=== PATIENT | male | born 1950 | race Caucasian/White ===

== ENCOUNTER 2018-02-07 06:59 | Day surgery (SDC) | payer MEDICARE, OTHER ==
[~2018-02-07] VITALS: Ht 177.8 cm; Wt 86.4 kg
[~2018-02-07 06:59] MED LIST: MIRAPEX 1MG PO; RT ADVAIR 228 DISKUS IH; SEPTRA DS 8001 TAB PO
[2018-02-07] MEDS ORDERED: NEXIUM 40MG40 MG PO (07:12)
[2018-02-07] MEDS ORDERED: AMBIEN 10MG10 MG PO (07:12)
[2018-02-07] MEDS ORDERED: SINGULAIR 110 MG/TAB PO (07:13)
[2018-02-07] MEDS ORDERED: HCTZ 25MG TAB25 MG PO (07:13)
[2018-02-07] MEDS ORDERED: ASPIRIN 32325 MG/TAB PO (07:21)
[2018-02-07] MEDS ORDERED: ALEVE 220MG220 MG PO (07:21)
[2018-02-07] MEDS ORDERED: MULTI VITAMINS1 TAB PO (07:22)
[2018-02-07] MEDS ORDERED: FLONASEALLERGY NS (07:23)
[2018-02-07 07:47] VITALS: BP 127/78; PULSE 54; TEMP 97.8
[2018-02-07 09:05] VITALS: BP 127/78; PULSE 51; TEMP 97.6
[2018-02-07 09:20] VITALS: BP 111/70; PULSE 46
[2018-02-07 09:35] VITALS: BP 105/69; PULSE 52
== END 2018-02-07 10:03 | disposition home or self-care (01) ==
LOC: SDCO 06:59
DX: D12.5 Benign neoplasm of sigmoid colon (principal); K63.5 Polyp of colon; K57.30 Diverticulosis of large intestine without perforation or abscess without bleeding; K64.0 First degree hemorrhoids; K21.9 Gastro-esophageal reflux disease without esophagitis; Z87.442 Personal history of urinary calculi; Z86.010 Personal history of colon polyps; Z96.652 Presence of left artificial knee joint; Z79.82 Long term (current) use of aspirin; Z80.0 Family history of malignant neoplasm of digestive organs
CPT/HCPCS: J2250; J3010; J7030

== ENCOUNTER 2019-04-18 10:00 | Outpatient (RCR) | payer MEDICARE, OTHER ==
[~2019-04-18 10:00] MED LIST changes: +ALEVE 220MG220 MG PO; +AMBIEN 10MG10 MG PO; +ASPIRIN 32325 MG/TAB PO; +FLONASEALLERGY NS; +HCTZ 25MG TAB25 MG PO; +MULTI VITAMINS1 TAB PO; +NEXIUM 40MG40 MG PO; +SINGULAIR 110 MG/TAB PO
== END 2019-04-18 15:20 | disposition home or self-care (01) ==
LOC: MKS.ESL.PT 10:00
DX: M25.60 Stiffness of unspecified joint, not elsewhere classified (principal)
CPT/HCPCS: G0283-GP

== ENCOUNTER 2020-01-04 14:56 | Outpatient (RCR) | payer MEDICARE, OTHER ==
[~2020-01-04 14:56] MED LIST changes: +ASPIRIN E.C. 8181 MG PO; +BRILINTA90 MG PO; +IMDUR 30MG30 MG/TAB PO; +LIPITOR 80MG80 MG PO; +UNIPHYL 400MG400 MG PO
== END 2020-01-06 | disposition still patient (30) ==
LOC: COL.CR
DX: Z48.812 Encounter for surgical aftercare following surgery on the circulatory system (principal); Z95.5 Presence of coronary angioplasty implant and graft

== ENCOUNTER 2020-04-07 15:55 | Outpatient (RCR) | payer SELFPAY | END 2020-04-08 | disposition home or self-care (01) | LOC: COL.CR | DX: Z02.9 Encounter for administrative examinations, unspecified (principal) ==

== ENCOUNTER 2020-07-07 13:12 | Outpatient (RCR) | payer SELFPAY | END 2020-07-08 | disposition home or self-care (01) | LOC: COL.CR | DX: Z02.89 Encounter for other administrative examinations (principal) ==

== ENCOUNTER 2020-10-03 17:07 | Outpatient (RCR) | payer SELFPAY | END 2020-10-07 | disposition home or self-care (01) | LOC: COL.CR | DX: Z02.89 Encounter for other administrative examinations (principal) ==

== ENCOUNTER 2020-11-20 09:15 | Outpatient (RCR) | payer MEDICARE | END 2020-12-04 10:41 | disposition home or self-care (01) | LOC: PT.GENESIS 09:15 | DX: M25.561 Pain in right knee (principal) ==

== ENCOUNTER 2021-01-05 15:26 | Outpatient (RCR) | payer SELFPAY | END 2021-01-06 | disposition home or self-care (01) | LOC: COL.CR | DX: Z02.89 Encounter for other administrative examinations (principal) ==

== ENCOUNTER 2021-09-02 14:39 | Outpatient (RCR) | payer SELFPAY | END 2021-09-03 | LOC: COL.CR | DX: Z29.8 Encounter for other specified prophylactic measures (principal) ==

== ENCOUNTER 2021-10-02 15:58 | Outpatient (RCR) | payer SELFPAY | END 2021-10-03 | LOC: COL.CR | DX: Z29.8 Encounter for other specified prophylactic measures (principal) ==

== ENCOUNTER 2021-10-19 15:59 | Outpatient (RCR) | payer SELFPAY | END 2021-11-03 | LOC: COL.CR | DX: Z29.8 Encounter for other specified prophylactic measures (principal) ==

== ENCOUNTER 2021-11-23 08:15 | Outpatient (RCR) | payer MEDICARE | END 2021-12-03 | disposition still patient (30) | LOC: MKS.ESL.PT | DX: M54.50 Low back pain, unspecified (principal); M19.90 Unspecified osteoarthritis, unspecified site ==

== ENCOUNTER 2021-12-02 14:40 | Outpatient (RCR) | payer SELFPAY | END 2021-12-03 | LOC: COL.CR | DX: Z29.8 Encounter for other specified prophylactic measures (principal) ==

== ENCOUNTER 2022-01-01 13:02 | Outpatient (RCR) | payer SELFPAY | END 2022-01-03 | LOC: COL.CR | DX: Z29.8 Encounter for other specified prophylactic measures (principal) ==

== ENCOUNTER 2022-02-01 08:15 | Outpatient (RCR) | payer MEDICARE, OTHER | END 2022-02-03 | disposition home or self-care (01) | LOC: PT.GENESIS | DX: M25.561 Pain in right knee (principal) ==

== ENCOUNTER → 2022-02-03 | Outpatient (RCR) | payer SELFPAY | LOC: COL.CR | DX: Z29.8 Encounter for other specified prophylactic measures (principal) ==

== ENCOUNTER 2022-08-31 10:45 | Outpatient (RCR) | payer MEDICARE | END 2022-09-03 | disposition home or self-care (01) | LOC: PT.GENESIS | DX: M25.561 Pain in right knee (principal); M54.50 Low back pain, unspecified ==

== ENCOUNTER 2023-06-28 07:36 | Day surgery (SDC) | payer MEDICARE, OTHER ==
[~2023-06-28] VITALS: Ht 177.8 cm; Wt 91.6 kg
[~2023-06-28 07:36] MED LIST changes: +LR 1,000 ML IV SCH; +Ondansetron 4 MG/2 ML VIAL IV PRN
[2023-06-28] MEDS ORDERED: OMEGA-3 1000 MG1 CAP PO (07:58)
[2023-06-28] MEDS ORDERED: CLARITIN 1010 MG/TAB PO (07:58)
[2023-06-28] MEDS ORDERED: ALDACTONE 25MG25 M1 PO (07:59)
[2023-06-28] MEDS ORDERED: FLOMAX 0.40.4 MG/CAP PO (07:59)
[2023-06-28] MEDS ORDERED: REVATIO20 MG PO (07:59)
[2023-06-28] MEDS ORDERED: FASENRA30 MG/1 ML SQ (08:23)
[2023-06-28 08:37] VITALS: BP 111/86; PULSE 78; TEMP 97
[2023-06-28 09:30] VITALS: BP 108/68; PULSE 58; TEMP 99
[2023-06-28 09:45] VITALS: BP 114/65; PULSE 56
[2023-06-28 10:00] VITALS: BP 121/68; PULSE 52
--- NOTE | 2023-06-28 11:17 | NUR ---
[id number]: PT TO RECOVERY BAY 1 FROM ENDO S/P COLONOSCOPY WITH POLYPECTOMY A&O, PLACED ON MONITOR, VSS ON RA RECEIVED REPORT AND ASSUMED CARE OF PT FROM NOHEMI ABEL AT BEDSIDE PROVIDED FOOD/FLUIDS, TOLERATING WELL DR IN TO SPEAK TO PT POST-PROCEDURE PT HAS REMAINED A&O, NAD, VSS ON RA, TOLERATING PO, IS WITHOUT SIGNIFICANT COMPLAINT, WITH STEADY GAIT THRU OUT STAY IV D/C'D. D/C INSTRUCTIONS, ANY FOLLOW UP REVIEWED AND HANDED TO PT. ALL QUESTIONS AND CONCERNS ADDRESSED TO PT SATISFACTION. TAKEN TO EXIT VIA W/C WITH ALL BELONGINGS AND PAPERWORK IN HAND, ASSISTED INTO PASSENGER SEAT OF POV. TO DRIVE HOME.
== END 2023-06-28 10:10 | disposition home or self-care (01) ==
LOC: SDCO 07:36
DX: Z12.11 Encounter for screening for malignant neoplasm of colon (principal); D12.2 Benign neoplasm of ascending colon; D12.3 Benign neoplasm of transverse colon; K64.0 First degree hemorrhoids; K57.30 Diverticulosis of large intestine without perforation or abscess without bleeding; Z95.5 Presence of coronary angioplasty implant and graft; K21.9 Gastro-esophageal reflux disease without esophagitis; Z80.0 Family history of malignant neoplasm of digestive organs; Z79.899 Other long term (current) drug therapy
CPT/HCPCS: J7120